=== PATIENT | male | born 1960 ===

== ENCOUNTER 2016-10-24 15:51 | Emergency (ER) | payer OTHER ==
[2016-10-24] MEDS ORDERED: NORMAL SALINE 1,000 ML IV ONE ×2 (16:10→17:10)
[2016-10-24 17:01] LABS: Hematocrit 38.7 % (42.0-52.0); Hemoglobin 13.3 gm/dL (13.5-18.0); Mean Cell Volume 94.4 fl (78-100); Mean Corpuscular Hemoglobin 32.4 pg (27-31); Mean Corpuscular Hgb Conc 34.4 g/dl (32-36); Mean Platelet Volume 9.8 fl (6.0-9.5); Neutrophil # 8.4 K/mm3 (1.3-6.0); Neutrophil % 85.9 % (42-75.0); Platelet Count 138 K/mm3 (150-450); Red Cell Distribution Width 11.8 % (11.5-14.0); White Blood Count 9.8 K/mm3 (4.0-10.5)
[2016-10-24 17:20] LABS: ALT 28 U/L (19-67); AST 24 U/L (0-48); Albumin * 3.4 gm/dl (3.4-5.0); Alkaline Phosphatase * 61 U/L (50-170); Anion Gap 10.5 mmol/L (6.8-13.8); BUN/Creatinine Ratio 22.1 (9.0-21.6); Bilirubin, Total 1.1 mg/dL (0.0-1.1); Blood Urea Nitrogen 21 mg/dL (6-23); Ca. Corrected For Albumin 8.1 mg/dL (8.4-10.2); Calcium * 7.9 mg/dL (7.9-10.9); Carbon Dioxide 29.4 mmol/L (24-32.6); Chloride 106 mmol/L (97-106); Glucose * 101 mg/dL (70-110); Potassium 3.9 mmol/L (3.4-4.6); Sodium 142 mmol/L (132-142); Total Protein 6.2 gm/dL (6.2-8.2)
[2016-10-24 17:21] LABS: Troponin I Less than 0.017 ng/ml (0.00-0.10)
--- NOTE | 2016-10-24 18:59 | ERNOTE ---
Syncope ER [facility] Date of Service: 10/24/16 Stated Complaint: NEAR SYNCOPE Time Seen by Provider: 10/24/16 16:40 Source: patient Exam Limitations: no limitations Immunizations: IMMUNIZATION HX Immunizations Up to Date Yes History of Influenza Vaccine No Hx Pneumococcal Vaccination No Allergies/Adverse Reactions: Allergies No Known Allergies Allergy (Unverified 10/24/16 15:58) Home Medications: HOME MEDICATIONS Aspirin 81 mg PO DAILY 10/24/16 [Last Taken Unknown] Simvastatin 10/24/16 [Last Taken Unknown] - History of Present Illness Narrative: Patient presents to the ED for lightheadedness. He has been standing outside for 3 hours waiting for a long-term tour. He then became lightheaded and needed to sit down, feeling like he was going to nearly pass out. He did not have any chest pain. He felt like he could vomit. [place] better lying down. No blood in stool, no CP or sob, no abdominal pain. He did not pass out fully. He had half a bottle of water while standing outside. Prior Episodes: Present: no prior history Symptoms prior to episode: Present: light headedness Activity at time of episode: Present: standing Character of event: Present: almost passed out. Absent: no loss of consciousness, became unresponsive, seizure activity observed, incontinent Location of Injury: Present: none Current Symptoms: Present: light headedness Prior Treament: Denies: recently seen Review of Systems - Review of Systems Constitutional: Absent: fever Respiratory: Absent: shortness of breath Cardiology: Absent: chest pain Gastrointestinal/Abdominal: Absent: abdominal pain Genitourinary: Absent: dysuria Neurological: Absent: weakness - Patient's Past Medical History Patient History - Medical: No pertinent hx Patient History - Cardiac/Respiratory: Hyperlipidemia Patient History - Cancer: No Hx of Cancer Patient History - Surgical Procedures: No surgical history Patient History - Other: None - Social History Living Situations: home Abuse History: No History of abuse Psych History: No pertinent hx Alcohol Use: none Drug Use: none - Immunizations Immunizations Up to Date: Yes Hx Pneumococcal Vaccination: No History of Influenza Vaccine: No Physical Exam - Physical Exam General Appearance: Present: alert, no apparent distress Eye Exam: Normal inspection: bilateral, PERRL: bilateral Ears, Nose, Throat: Present: normal ENT inspection Neck: Present: normal inspection, nontender Respiratory: Present: no respiratory distress, normal breath sounds, no accessory muscle use, lungs clear Cardiovascular/Chest: Present: regular rate, rhythm, normal peripheral pulses Gastrointestinal/Abdominal: Present: normal bowel sounds, nontender, nondistended, soft. Absent: tenderness Back Exam: Present: normal inspection Extremity Exam: Present: normal inspection Neurological Exam: Present: alert, normal mood/affect, no motor/sensory deficits , door trimmer II-XII nml as tested, other - NIH - 0. Absent: motor weakness Skin Exam: Present: normal color, warm/dry. Absent: skin rash ED Progress - Results and Orders Patient's Lab Results:: I have reviewed the patient's lab results. - Vital Signs Patient's Vital Signs:: I have reviewed the patient's vital signs. Vital Signs: Vital Signs 10/24/16 10/24/16 10/24/16 15:54 16:02 16:35 Temperature 35.7 C L Pulse Rate 58 L 62 61 Respiratory 18 17 Rate Blood Pressure 118/67 117/74 O2 Sat by Pulse 100 98 Oximetry 10/24/16 17:35 Temperature Pulse Rate 61 Respiratory 14 Rate Blood Pressure 119/76 O2 Sat by Pulse 98 Oximetry - EKG EKG read: Interp. by me EKG Comments: Sinus cleopatra rate 58. Non-specific ekg, no STEMI. - Progress/Reassessment Chief Complaint: Syncopal Episode Progress Note-Subjective: 10/24/16 18:54 Feeling improved after IV fluids. I offered him observation but he declines this and wishes to go home. He understands risks and benefits. No suggestion of stroke, ACS, dysrhythmia or other acute life threat. Departure Clinical Impression: Near syncope - Departure Disposition: Home self-care Condition: Stable Instructions: Near-Syncope, [id number] Additional Instructions: Rest. Fluids. Follow-up with your doctor within 2 days for a re-check. Return if you change you mind about observation, develop weeakness, chest pain, blood in stool or if your condition worsens or changes in any way.
[2016-10-24 19:24] VITALS: BP 121/74
== END 2016-10-24 19:00 | disposition home or self-care (01) ==
LOC: ER 15:51
DX: R55 Syncope and collapse (principal)